=== PATIENT | male | born 1995 | race Caucasian/White ===

== ENCOUNTER 2019-06-03 11:43 | Emergency (ER) | payer SELFPAY ==
[2019-06-03 11:53] VITALS: BP 130/74; PULSE 94; RESP 18; TEMP 36.6; O2SAT 99; BMI 20.1
--- NOTE | 2019-06-03 12:00 | ED_ITS ---
Documented by User: LORENA Carrasco 06/04/19 07:32 HPI - Extremity Problem General: Chief complaint: Extremity Injury, Lower Stated complaint: FALL, L ANKLE PAIN Time Seen by Provider: 06/03/19 11:54 History of Present Illness: HPI Narrative: Patient is a 23-year-old male who comes to the ED with left ankle and heel pain. Patient had injury yesterday while skateboarding. He denies any head trauma, nausea or vomiting. Patient s tates that he was grinding on a ledge with his skateboard and his left foot came off the board knee drove it hard into the concrete and he thinks his ankle rolled little as well. He rates pain as 7 while sitting. Since injury said he is unable to bear weight. Associated symptoms: Deny chest pain, fever(s) or rash Review of Systems Const: Denies: fever, chills or fatigue Eyes: Denies: change in vision or eye discomfort ENMT: Denies: throat pain, painful swallowing, nasal discharge or nasal congestion Card: Denies: chest pain, palpitations, edema, swelling of feet/ankles, shortness of breath on exertion or shortness of breath when lying down Resp: Denies: shortness of breath, productive cough or non-productive cough GI: Denies: abdominal pain, nausea, vomiting, diarrhea, constipation or blood in stool : Denies: flank pain, difficulty urinating, painful urination or blood in urine Musc: Reports: extremity pain (left foot); Denies: neck pain, back pain or extremity swelling Skin/Breast: Denies: rash or new lesion Neuro: Denies: headache, numbness in extremities or weakness in extremities [facility] ED PFSH: Social History Smoking and tobacco status: current every day smoker cigarettes Packs smoked per day: 0.5 Years cigarettes smoked: 10 Quit status (tobacco): has tried quititng Number of times tried to quit tobacco: 12 Second hand smoke exposure: No Smoking risk assessment/counseling performed?: Yes Tobacco counseling given: counseling >3 minutes Physical Exam Const: COMMON NORMALS: oriented x3 HENMT: COMMON NORMALS: normocephalic HEAD & SCALP: normocephalic MOUTH: oral and palatal mucosa normal THROAT: posterior oropharynx normal and uvula midline Neck/C-Spine: COMMON NORMALS: supple GENERAL: Yes normal visual inspection Resp: COMMON NORMALS: normal respiratory effort, no retractions, no use of accessory muscles and clear to auscultation bilaterally AUSCULTATION: clear to auscultation bilaterally Cardio: COMMON NORMALS: regular rate, regular rhythm, S1 normal heart sound, S2 normal heart sound, no gallops, no clicks, no murmurs and peripheral pulses 2+ throughout RATE: regular rate RHYTHM: regular rhythm HEART SOUNDS: S1 normal and S2 normal PERIPHERAL PULSES: pulses 2+ throughout GI: COMMON NORMALS: normal to inspection, nondistended, normoactive bowel sounds, soft to palpation, non-tender and no masses PALPATION: Yes soft : COMMON NORMALS: Yes no CVA tenderness BLADDER/KIDNEY EXAM: Yes no CVA tenderness Back/Pelvis: COMMON NORMALS: no CVA tenderness Extremity: LEFT LOWER EXTREMITY: Yes ankle joint Left ankle: Yes inspection (No swelling, erythema or ecchymosis seen.), Yes palpation (Tender on the lateral and medial side of ankle and also on heel.), Yes ROM (normal), Yes neurovascular exam ( intact) and Yes special tests (Brown test neg for achilles rupture) Left ankle special tests: Squeeze test: Negative (Brown test) Neuro: COMMON NORMALS: oriented x3 and moves all extremities Skin: COMMON NORMALS: no rashes or lesions noted GENERAL SKIN EXAM: no rashes or lesions noted and dry skin Course Vital Signs: Vital signs: Vital Signs Temperature 97.9 F 06/03/19 11:53 Pulse Rate 80 06/03/19 14:05 Respiratory Rate 16 06/03/19 14:05 Blood Pressure 126/79 06/03/19 14:05 Pulse Oximetry 98 06/03/19 14:05 MDM - Extremity (Nontraumatic) MDM Narrative: Medical decision making narrative: Patient is a 23-year-old male who comes to the ED with left ankle and heel pain. Physical exam showed some tenderness upon palpating the heel and the anterior talofibular ligament. Left ankle x-ray was negative for acute fracture. Patient was given crutches and his left ankle was Glen wrapped. He was told to take Aleve or ibuprofen for pain and inflammation. Rest, ice, elevate and compress. Follow-up with PCP in 7 days for reevaluation. Patient understood and agreed with plan. Imaging Data^: Xray Ortho: Attestation: I personally reviewed and interpreted this imaging study as follows: Radiologist's impression: [address] [place] [address] XRay Report Signed Patient: J Carlos Kerr Unit #: [id number] : 1995 Age/Sex: 23 / M ADM Date: 06/03/19 Loc: ER Room/Bed: Attending Dr: Ordering Provider/Ordering MD: Leo Morales Date of Service: 06/03/19 Procedure(s): XR ankle LT min 3V* [id number] Accession Number(s): [id number] Report Number: [id number] WS: [id number] ANKLE LEFT TECHNIQUE: 3 views of the left ankle CLINICAL INFORMATION: injury, ankle and heel pain COMPARISON: None. FINDINGS: Normal ankle mortise. Talar dome is normal. No visualized fractures. Normal visualized soft tissues. XR/XR ankle LT min 3V* [id number] IMPRESSION: Normal left ankle. Dictated By: Micheal Palacio MD Signed By: Micheal Palacio MD Signed Date/Time: 06/03/19 132 DD/ 1328 Discharge Plan Discharge Patient Disposition: Home, Self-Care Clinical Impression: Ankle sprain and strain Contusion Qualifiers: Encounter type: initial encounter Contusion area: foot Laterality: left Qualified Code(s): S90.32XA - Contusion of left foot, initial encounter Condition: Stable Prescriptions: No Action duloxetine 30 mg capsule,delayed release(DR/EC) 30 mg PO DAILY Qty: 30 RF: 2 trazodone 50 mg tablet 100 mg PO BEDTIME RF: 0 Discharge Orders: Discharge Order (Routine); Ordered 06/03/19 Ordered By: Leo Morales Referrals: Peter Tapia MD [Primary Care Provider] - Discharge Diet: Regular Discharge Activity: Increase activity as tolerated Patient Instructions: Ankle Sprain (ED) Activity Restrictions/Additional Instructions: Follow-up with your PCP in 7 days for reevaluation. Rest, ice, elevate and compress left ankle with Glen wrap. Take [id number] ibuprofen or Aleve for pain and inflammation. Use crutches to help ambulate in bear weight as tolerated. Discharge Date/Time: 06/03/19 14:06 Coding Level of Care Code ED Director Work for [employer] Fwd Exam Comprehensive Documented by User: Sin Nichole DO 06/04/19 09:46 HPI - Extremity Problem General: Chief complaint: Extremity Injury, Lower Stated complaint: FALL, L ANKLE PAIN Time Seen by Provider: 06/03/19 11:54 PFSH ED PFSH: Social History Smoking and tobacco status: current every day smoker cigarettes Packs smoked per day: 0.5 Years cigarettes smoked: 10 Quit status (tobacco): has tried quititng Number of times tried to quit tobacco: 12 Second hand smoke exposure: No Smoking risk assessment/counseling performed?: Yes Tobacco counseling given: counseling >3 minutes Course Vital Signs: Vital signs: Vital Signs Temperature 97.9 F 06/03/19 11:53 Pulse Rate 80 06/03/19 14:05 Respiratory Rate 16 06/03/19 14:05 Blood Pressure 126/79 06/03/19 14:05 Pulse Oximetry 98 06/03/19 14:05 MDM - Extremity (Nontraumatic) MDM Narrative: Medical decision making narrative: Patient discussed with midlevel chart, reviewed agree with assessment and plan Discharge Plan Discharge Patient Disposition: Home, Self-Care Clinical Impression: Ankle sprain and strain Contusion Qualifiers: Encounter type: initial encounter Contusion area: foot Laterality: left Qualified Code(s): S90.32XA - Contusion of left foot, initial encounter Condition: Stable Prescriptions: No Action duloxetine 30 mg capsule,delayed release(DR/EC) 30 mg PO DAILY Qty: 30 RF: 2 trazodone 50 mg tablet 100 mg PO BEDTIME RF: 0 Discharge Orders: Discharge Order (Routine); Ordered 06/03/19 Ordered By: Leo Morales Referrals: Peter Tapia MD [Primary Care Provider] - Discharge Diet: Regular Discharge Activity: Increase activity as tolerated Patient Instructions: Ankle Sprain (ED) Activity Restrictions/Additional Instructions: Follow-up with your PCP in 7 days for reevaluation. Rest, ice, elevate and compress left ankle with Glen wrap. Take [id number] ibuprofen or Aleve for pain and inflammation. Use crutches to help ambulate in bear weight as tolerated. Discharge Date/Time: 06/03/19 14:06 Coding Level of Care Code ED Director Work for [employer] Fwd Exam Comprehensive
--- NOTE | 2019-06-03 12:06 | XR_ITS ---
WS: [id number] ANKLE LEFT TECHNIQUE: 3 views of the left ankle CLINICAL INFORMATION: injury, ankle and heel pain COMPARISON: None. FINDINGS: Normal ankle mortise. Talar dome is normal. No visualized fractures. Normal visualized soft tissues. XR/XR ankle LT min 3V* [id number] IMPRESSION: Normal left ankle.
[2019-06-03] MEDS: HYDROcodone-acetaminophen 7.5-325 mg Tablet 1 TAB PO (12:11)
[2019-06-03 12:13] VITALS: PULSE 87
[2019-06-03 13:00] VITALS: BP 123/87; PULSE 88; RESP 16; O2SAT 98
[2019-06-03 14:05] VITALS: BP 126/79; PULSE 80; RESP 16; O2SAT 98
== END 2019-06-03 14:06 | disposition home or self-care (01) ==
PROVIDERS: Emergency Provider Physician Assistant; PCP Family Medicine
DX: S93.402A Sprain of unspecified ligament of left ankle, initial encounter (principal); S90.32XA Contusion of left foot, initial encounter; M25.572 Pain in left ankle and joints of left foot; V00.131A Fall from skateboard, initial encounter; F17.210 Nicotine dependence, cigarettes, uncomplicated
CPT/HCPCS: 12345; 73610; 99281; 99283